=== PATIENT | male | born 1995 | race Caucasian/White ===

== ENCOUNTER → 2016-12-04 | Outpatient (CLI) | payer SELFPAY ==
[2016-12-04 17:21] LABS: HEMATOCRIT 44.5 % (42.0-52.0); HEMOGLOBIN 15.4 g/dL (14.0-18.0); MEAN CORPUSCULAR HEMOGLOBIN 29.2 PG (27-31); MEAN CORPUSCULAR HGB CONC 34.6 g/dL (33-37); MEAN CORPUSCULAR VOLUME 84.4 FL (80-90); MEAN PLATELET VOLUME 11.5 FL (7.4-12.2); RED BLOOD COUNT 5.27 10^6/uL (4.70-6.10)
[2016-12-04 18:03] LABS: BLOOD UREA NITROGEN 14 mg/dL (7-22); CALCIUM 10.4 mg/dL (8.7-10.7); EST GLOMERULAR FILTRATION > 60 (>60 ml/min/1.73m(2)); SERUM ALBUMIN 4.7 g/dL (3.5-4.8)
== END ==
LOC: MOB LAB 16:17
PROVIDERS: ATTEND Family Medicine
DX: R53.83 Other fatigue (principal); R40.0 Somnolence; Z83.3 Family history of diabetes mellitus; Z83.49 Family history of other endocrine, nutritional and metabolic diseases; Z72.0 Tobacco use
CPT/HCPCS: 36415; 80053; 84443; 85027